=== PATIENT | male | born 1995 | race Hispanic/Latino ===

== ENCOUNTER 2017-11-07 01:33 | Emergency (ER) | payer OTHER ==
[~2017-11-07] VITALS: Ht 167.6 cm; Wt 59.0 kg
[~2017-11-07 01:33] MED LIST: AMBIEN5 MG PO; ATIVAN0.5 MG PO; CYCLOBENZAPRINE5 MG PO; PROZAC20 MG PO
--- OUTSIDE RECORDS SUMMARY | 2017-11-07 01:35 | XMS REPORT ---
Author Author [facility] Address Unknown Phone Unavailable Care Team Providers Care Sorter Packer Name Role Phone ARTHUR SEALS Unavailable Unavailable Problems This patient has no known problems. Allergies, Adverse Reactions, Alerts This patient has no known allergies or adverse reactions. Medications This patient has no known medications. Results Test Description Test Time Test Comments Text Results Atomic Results Result Comments CHEST SINGLE (PORTABLE) [place] [address] Patient Name: JOSLYN FREEMAN MR #: [id number] : 1995 Age/Sex: 21/M Req #: [id number] Adm Physician: Ordered by: ARTHUR SEALS MD Report #: [id number] Location: ER Room/Bed: Procedure: [id number] DX/CHEST SINGLE (PORTABLE) Exam Date: 05/11/17 Exam Time: 1415 REPORT STATUS: Signed EXAM: XR CHEST 1 VIEW DATE: 05/11/2017 2:06 PM INDICATION: COMPARISON: None FINDINGS: Lines and Tubes: None Heart and Mediastinum: No acute findings. Lungs and Pleura: Mild perihilar bronchial wall thickening. Bones and Soft Tissues: No acute findings. IMPRESSION: 1. Perihilar opacities can be seen in the setting of asthma or viral processes. Signed by: Dr. Jostin Looney MD on 05/11/2017 2:30 PM Dictated By: JOSTIN LOONEY MD 143 Transcribed By: KRISTI on 05/11/17 143 COPY TO: ARTHUR SEALS MD CT BRAIN WO [facility] [address] [place] [address] Patient Name: JOSLYN FREEMAN MR #: [id number] : 1995 Age/Sex: 21/M Req #: [id number] Adm Physician: Ordered by: ARTHUR SEALS MD Report #: [id number] Location: ER Room/Bed: Procedure: [id number] CT/CT BRAIN WO Exam Date: Exam Time: REPORT STATUS: Signed History: Seizure, blacked out Comparison studies: None Technique: Axial images were obtained from the skull base to the vertex. Coronal and sagittal reconstructions obtained from the axial data. Findings: Scalp/skull: No abnormalities. No fractures, blastic or lytic lesions. Extra-axial spaces: No masses. No fluid collections. Brain sulci: Mildly prominent more than expected for age. Ventricles: Normal in size and configuration. No hydrocephalus. Parenchyma: No abnormal densities. No masses, hemorrhage, acute or chronic cortical vascular insults. Sellar/suprasellar region: No abnormalities Craniocervical junction: Patent foramen magnum. No Chiari one malformation. IMPRESSION: No acute abnormalities . Mild volume loss, more than expected for age Signed by: DR Ej Hinton M.D. on 05/11/2017 2: 44 PM Dictated By: EJ AZEVEDO MD [id number] Transcribed By: KRISTI on 05/11/17 [id number] COPY TO: ARTHUR SEALS MD
[2017-11-07] MEDS ORDERED: KETOROLAC TROMETHAMINE 30 MG/ML VIAL IV STA (01:46)
[2017-11-07] MEDS ORDERED: CEFTRIAXONE SOD 1 GM VIAL IV ONE (02:00)
[2017-11-07] MEDS ORDERED: ACETAMINOPHEN 325 MG TAB PO ONE (02:00)
[2017-11-07] MEDS ORDERED: SODIUM CHLORIDE 0.9% 1000ML 1,000 ML IV ONE (02:00)
[2017-11-07 02:11] LABS: ALANINE AMINOTRANSFERASE 69 IU/L (0-55); ALBUMIN 4.5 g/dL (3.5-5.0); ALBUMIN/GLOBULIN RATIO 1.4 (0.8-2.0); ALKALINE PHOSPHATASE 116 IU/L (40-150); BASOPHILS % 0.4 % (0.0-1.0); BLOOD UREA NITROGEN 15 mg/dL (7-26); BUN/CREATININE RATIO 16 (6-25); CARBON DIOXIDE 28 mmol/L (22-29); CHLORIDE 103 mmol/L (98-107); CREATININE, SERUM 0.96 mg/dL (0.72-1.25); EOSINOPHILS % 0.4 % (0.0-6.0); EST GLOMERULAR FILTRATION RATE > 60 ML/MIN (60-); GLUCOSE 115 mg/dL (74-118); HEMATOCRIT 41.2 % (38.2-49.6); LYMPHOCYTES % 19.7 % (18.0-39.1); MEAN CORPUSCULAR HEMOGLOBIN 31.5 pg (28-32); MEAN CORPUSCULAR HGB CONC 36.4 g/dL (31-35); MEAN CORPUSCULAR VOLUME 86.6 fL (81-99); MONOCYTES # (AUTO) 0.9 (0.2-0.8); MONOCYTES % 8.6 % (4.4-11.3); NEUTROPHILS # (AUTO) 7.3 (2.1-6.9); NEUTROPHILS % 70.5 % (38.7-80.0); PLATELET COUNT 257 x10e3/uL (140-360); RED BLOOD COUNT 4.76 x10e6/uL (4.3-5.7); RED CELL DISTRIBUTION WIDTH 11.8 % (11.7-14.4); SODIUM 141 mmol/L (136-145)
[2017-11-07 03:27] LABS: BILIRUBIN,URINE NEGATIVE (NEGATIVE); CLARITY,URINE CLEAR (CLEAR); COLOR,URINE YELLOW (YELLOW); KETONES,URINE NEGATIVE (NEGATIVE); LEUKOCYTE ESTERASE ,URINE NEGATIVE (NEGATIVE); NITRITE,URINE NEGATIVE (NEGATIVE); PROTEIN,URINE DIPSTICK NEGATIVE (NEGATIVE); URINE UROBILINOGEN 0.2 mg/dL (0.2 - 1)
[2017-11-07 03:45] LABS: BACTERIA,URINE RARE /HPF; EPITHELIAL CELLS,URINE RARE /LPF; RBC,URINE 0-5 /HPF (0-5)
[2017-11-07 05:45] VITALS: BP 108/73
[2017-11-07] MEDS ORDERED: DOXYCYCLINE HY100 MG PO (05:48)
[2017-11-07] MEDS ORDERED: KETOROLAC TROME10 MG PO (05:48)
--- NOTE | 2017-11-07 05:48 | Diagnostic Imaging Report ---
Exam: US TESTICULAR DOPPLER LTD, US TESTICULAR Clinical History: Evaluate for testicular torsion, right testicular pain in low-grade fever Technique: Sonographic evaluation of the testicles using grayscale and color Doppler. Findings. Both testes are normal in echogenicity and size without intratesticular mass. The right testes measures 5.2 x 2.7 x 3.9 cm and the left testes measures 4.9 x 2.4 x 3.7 cm. Arterial and venous flow is documented to bilateral testicles. Mild asymmetrically increased flow to the right testicle (arterial 8-10 cm/s vs 5 cm/s on the left). Small right hydrocele. Questionable small right varicocele versus hyperemia. 0.8 x 0.5 x 0.5 cm left epididymal head cyst or spermatocele. Right epididymis is asymmetrically enlarged and heterogeneous compared to the left, but color Doppler was not evaluated. Impression: 1. Findings most compatible with right epididymoorchitis. 2. No evidence of torsion. Signed by: Dr Jen Florian MD on 11/07/2017 5:44 AM
== END 2017-11-07 05:57 | disposition home or self-care (01) ==
LOC: ER 01:33
DX: N50.811 Right testicular pain (principal); N45.1 Epididymitis; F32.9 Major depressive disorder, single episode, unspecified; F41.9 Anxiety disorder, unspecified
CPT/HCPCS: 36415; 76870; 80053; 81001; 85025; 93976; 96360; 96374; 99284; J0696; J1885; J7030